=== PATIENT | male | born 1975 | race Hispanic/Latino ===

== ENCOUNTER 2018-09-09 00:50 | Observation (INO) | payer BC ==
[2018-09-09 01:38] VITALS: BMI 29.2
[2018-09-09] MEDS ORDERED: Morphine 2 mg/ml ISec IVP STA (02:03)
[2018-09-09] MEDS ORDERED: Sodium Chloride 0.9% 1,000 ML IV STA ×2 (02:03→05:01)
[2018-09-09] MEDS ORDERED: Morphine 4 mg/ml ISec IVP STA ×2 (02:14→03:41)
--- NOTE | 2018-09-09 02:19 | ED PDOC ---
Arrival/HPI - General Chief Complaint: Back Pain Time Seen by Provider: 09/09/18 01:07 Historian: Patient - History of Present Illness Narrative History of Present Illness (Text): 09/09/18 02:16 43 year old male, with no significant past medical history, presents to the emergency department with right flank pain and nausea, since today. Patient states pain is sharp and constant. Patient informs that he has been feeling sick, as he has had sick contact with his child at home who has pneumonia. Patient states he does not have dysuria, but seems to not be urinating as much as normal. Patient denies any fevers, chills, headache, dizziness, shortness of breath, chest pain, cough, vomiting, diarrhea, neck pain, or any other complaints. Time/Duration: Prior to Arrival, 24 hours Symptom Onset: Gradual Symptom Course: Unchanged Quality: Stabbing Context: Home Past Medical History - Provider Review Nursing Documentation Reviewed: Yes - Cardiac Hx Cardiac Disorders: Yes Hx Hypertension: Yes - Psychiatric Hx Substance Use: No Family/Social History - Physician Review Nursing Documentation Reviewed: Yes Family/Social History: No Known Family HX Smoking Status: Current Some Days Smoker Hx Alcohol Use: No Hx Substance Use: No Allergies/Home Meds Allergies/Adverse Reactions: Allergies No Known Allergies Allergy (Verified 09/09/18 01:43) Review of Systems - Physician Review All systems were reviewed & negative as marked: Yes - Review of Systems Constitutional: absent: Fevers, Night Sweats Respiratory: absent: SOB, Cough Cardiovascular: absent: Chest Pain Gastrointestinal: Abdominal Pain (Right flank), Nausea. absent: Diarrhea, Vomiting Musculoskeletal: absent: Neck Pain Neurological: absent: Headache, Dizziness Physical Exam Vital Signs Reviewed: Yes Vital Signs Temp Pulse Resp BP Pulse Ox 09/09/18 01:37 98.7 F 60 18 152/80 H 96 Temperature: Afebrile Blood Pressure: Normal Pulse: Regular Respiratory Rate: Normal Appearance: Positive for: Well-Appearing, Non-Toxic, Comfortable Pain Distress: None Mental Status: Positive for: Alert and Oriented X 3 - Systems Exam Head: Present: Atraumatic, Normocephalic Pupils: Present: PERRL Extroacular Muscles: Present: EOMI Conjunctiva: Present: Normal Mouth: Present: Moist Mucous Membranes Neck: Present: Normal Range of Motion Respiratory/Chest: Present: Clear to Auscultation, Good Air Exchange. No: Respiratory Distress, Accessory Muscle Use Cardiovascular: Present: Regular Rate and Rhythm, Normal S1, S2. No: Murmurs Abdomen: No: Tenderness, Distention, Peritoneal Signs Back: Present: CVA Tenderness (Mild right CVA tenderness) Upper Extremity: Present: Normal Inspection. No: Cyanosis, Edema Lower Extremity: Present: Normal Inspection. No: Edema Neurological: Present: GCS=15, CN II-XII Intact, Speech Normal Skin: Present: Warm, Dry, Normal Color. No: Rashes Psychiatric: Present: Alert, Oriented x 3, Normal Insight, Normal Concentration Medical Decision Making ED Course and Treatment: 09/09/18 02:21 Impression: 43 year old male presents with right flank pain Plan: -- CT ABD& Pelvis -- CMP, Lipase -- CBC -- Morphine -- Zofran -- Urinalysis -- Reassess and disposition Prior Visits: Notes and results from previous visits were reviewed. Progress Notes: 09/09/18 03:41 CT SCAN OF THE ABDOMEN AND PELVIS WITHOUT ORAL OR IV CONTRAST. CLINICAL INDICATION: Right flank pain. TECHNIQUE: Axial and reformatted sagittal and coronal images of the abdomen pelvis obtained without IV contrast administration. COMPARISON: None. FINDINGS: The visualized lung bases are unremarkable. Normal unenhanced liver. Normal gallbladder and extrahepatic biliary system. Normal unenhanced spleen. Normal pancreas. Normal bilateral adrenal glands. Normal size of the right kidney. There is no right renal mass. There are no right renal calculi. 5.5 mm obstructing stone of the right ureter at L3. Mild right hydroureteronephrosis. Right perinephric fat stranding. Normal size of the left kidney. There is no left renal mass. There are no left renal calculi. There is no left hydronephrosis. Normal visualized left ureter. Normal visualized stomach. Normal small intestine. Normal colon. The appendix is visualized and appears normal. There is no demonstrated peritoneal fluid. Normal abdominal aorta. Normal inferior vena cava. Normal retroperitoneum. Normal urinary bladder. There is no pelvic mass lesion or lymphadenopathy. There is no pelvic fluid. Fat containing left inguinal hernia without incarceration. Fat containing umbilical hernia without incarceration Diffuse chronic Schmorl's node formation. IMPRESSION: Obstructing stone of the right ureter. 09/09/18 03:47 Spoke the medical diagnostic radiographer and Dr Crabtree who accept to the hospitalist service. - RAD Interpretation Radiology Orders: 09/09/18 02:02 ABD & PELVIS W/O PO OR IV CONT [CT] Stat - Medication Orders Current Medication Orders: Sodium Chloride (Sodium Chloride 0.9%) 1,000 mls @ 999 mls/hr IV .Q1H1M STA Stop: 09/09/18 03:03 Discontinued Medications Morphine Sulfate (Morphine) 4 mg IVP STAT STA Stop: 09/09/18 02:15 Ondansetron HCl (Zofran Inj) 4 mg IVP ONCE ONE Stop: 09/09/18 02:04 - Scribe Statement The provider has reviewed the documentation as recorded by the Hueibrichard Campbell Provider Scribe Attestation: All medical record entries made by the Scribe were at my direction and personally dictated by me. I have reviewed the chart and agree that the record accurately reflects my personal performance of the history, physical exam, medical decision making, and the department course for this patient. I have also personally directed, reviewed, and agree with the discharge instructions and disposition. Disposition/Present on Arrival - Present on Arrival Any Indicators Present on Arrival: No History of DVT/PE: No History of Uncontrolled Diabetes: No Urinary Catheter: No History of Decub. Ulcer: No History Surgical Site Infection Following: None - Disposition Have Diagnosis and Disposition been Completed?: Yes Diagnosis: Renal colic, Intractable pain Disposition: HOSPITALIZED Disposition Time: 04:06 Patient Plan: Observation Condition: STABLE Referrals: Cresencio Richard MD [Primary Care Provider] - Follow up with primary Forms: [employer] (Bangladeshi)
[2018-09-09 02:41] LABS: HEMOGLOBIN 14.3 g/dL (14.0-18.0); MEAN CELL VOLUME 90.3 fl (80.0-105.0); MEAN CORPUSCULAR HEMOGLOBIN 31.4 pg (25.0-35.0); MEAN CORPUSCULAR HGB CONC 34.8 g/dl (31.0-37.0); MEAN PLATELET VOLUME 10.6 fl (7.0-11.0); RBC 4.55 10^6/uL (3.5-6.1); RED CELL DISTRIBUTION WIDTH 12.5 % (11.5-14.5); WHITE BLOOD COUNT 12.9 10^3/uL (4.5-11.0)
[2018-09-09 02:50] LABS: ALB/GLOB RATIO 1.7 (1.1-1.8); ALBUMIN 4.7 g/dL (3.0-4.8); ALT/SGPT 42 U/L (7-56); AST/SGOT 37 U/L (17-59); BLOOD UREA NITROGEN 21 mg/dL (7-21); CALCIUM 9.3 mg/dL (8.4-10.5); GFR NON-AFRICAN AMERICAN > 60; LIPASE 62 U/L (23-300)
[2018-09-09 04:19] LABS: URINE BILIRUBIN NEGATIVE (NEGATIVE); URINE BLOOD LARGE (NEGATIVE); URINE GLUCOSE (UA) NEGATIVE (NEGATIVE); URINE LEUKOCYTE ESTERASE NEGATIVE Leu/uL (NEGATIVE); URINE PROTEIN NEGATIVE mg/dL (<30 mg/dL); URINE UROBILINOGEN 0.2 E.U./dL (<1 E.U./dL)
[2018-09-09 04:27] LABS: URINE APPEARANCE SLIGHT-CLOUDY (CLEAR); URINE COLOR YELLOW (YELLOW)
[2018-09-09 04:39] LABS: URINE EPITHELIAL CELLS 0 - 2 /hpf (0-5); URINE RBC 15 - 20 /hpf (0-2); URINE WBC 0 - 2 /hpf (0-6)
--- NOTE | 2018-09-09 04:55 | CP.PCM.HP ---
<Erik Taylor - Last Filed: 09/09/18 05:44> History of Present Illness - History of Present Illness History of Present Illness: Erik Taylor, PGY-1, Internal Medicine History and Physical for Dr. Crabtree 43 year old male with past medical history of hypertension presents with right flank pain and nausea since 20:00 on 09/08. Patient reported that his pain was dull and constant at an 8/10 until he was given morphine the emergency department. Pain does not radiate. Patient reports not being to handle drinking water this evening. Patient has noticed a decrease in urination lately. Patient also reported that he has had nasal congestion for the past 3-5 days. He says that he does not have any cough, shortness of breath, or sore throat. Patient denies fever, headache, chest pain, heart palpitations, shortness of breath, nausea, vomiting, constipation, diarrhea, dysuria. hematuria. 12-point ROS was unremarkable except for what was mentioned above. PMH: Hypertension PSH: denies FMHx: denies SHx: smoked 2 cigarettes recently. Used to smoke for 10 years, 10 years ago. unknown how much. Patient denies current alcohol and recreational drug use. Allergies: denies PMD: Dr. Dhaliwal [place] Rx: [facility]: [facility] [place] Present on Admission - Present on Admission Any Indicators Present on Admission: No Review of Systems - Constitutional Constitutional: absent: Anorexia, Chills, Fever - EENT Eyes: absent: Blurred Vision Ears: absent: Decreased Hearing Nose/Mouth/Throat: Nasal Congestion - Cardiovascular Cardiovascular: absent: Chest Pain, Dyspnea, Edema, Leg Edema - Respiratory Respiratory: absent: Cough, Dyspnea, Wheezing - Gastrointestinal Gastrointestinal: Abdominal Pain (rlq pain). absent: Constipation, Diarrhea - Genitourinary Genitourinary: Change in Urinary Stream. absent: Dysuria, Hematuria - Musculoskeletal Musculoskeletal: absent: Arthralgias - Neurological Neurological: absent: Numbness, Tingling, Vertigo Past Patient History - Past Social History Smoking Status: Current Some Days Smoker - CARDIAC Hx Cardiac Disorders: Yes Hx Hypertension: Yes - PSYCHIATRIC Hx Substance Use: No Meds Allergies/Adverse Reactions: Allergies Allergy/AdvReac Type Severity Reaction Status Date / Time No Known Allergies Allergy Verified 09/09/18 01:43 Physical Exam - Constitutional Appears: Well, Non-toxic, No Acute Distress - Head Exam Head Exam: ATRAUMATIC, NORMAL INSPECTION, NORMOCEPHALIC - Eye Exam Eye Exam: EOMI, PERRL - ENT Exam ENT Exam: Mucous Membranes Moist - Respiratory Exam Respiratory Exam: Clear to Auscultation Bilateral, NORMAL BREATHING PATTERN - Cardiovascular Exam Cardiovascular Exam: REGULAR RHYTHM, RRR - GI/Abdominal Exam GI & Abdominal Exam: Normal Bowel Sounds, Soft, Tenderness (rlq) - Extremities Exam Extremities exam: Positive for: full ROM - Back Exam Back exam: absent: CVA tenderness (L), CVA tenderness (R) - Neurological Exam Neurological exam: Alert, CN II-XII Intact, Oriented x3 - Psychiatric Exam Psychiatric exam: Normal Affect, Normal Mood - Skin Skin Exam: Dry, Intact, Normal Color Results - Vital Signs Recent Vital Signs: Last Vital Signs Temp 98.7 F 09/09/18 01:37 Pulse 60 09/09/18 01:37 Resp 18 09/09/18 01:37 BP 152/80 H 09/09/18 01:37 Pulse Ox 96 09/09/18 01:37 - Labs Result Diagrams: 09/09/18 02:21 09/09/18 02:21 Labs: Laboratory Results - last 24 hr 09/09/18 09/09/18 09/09/18 02:21 02:21 04:00 WBC 12.9 H RBC 4.55 Hgb 14.3 Hct 41.1 L MCV 90.3 MCH 31.4 MCHC 34.8 RDW 12.5 Plt Count 235 MPV 10.6 Sodium 136 Potassium 3.7 Chloride 99 Carbon Dioxide 28 Anion Gap 13 BUN 21 Creatinine 1.2 Est GFR ( Amer) > 60 Est GFR (Non-Af Amer) > 60 Random Glucose 122 H Calcium 9.3 Total Bilirubin 0.5 AST 37 ALT 42 Alkaline Phosphatase 79 Total Protein 7.4 Albumin 4.7 Globulin 2.7 Albumin/Globulin Ratio 1.7 Lipase 62 Urine Color Yellow Urine Appearance Slight-cloudy Urine pH 6.0 Ur Specific [place] >= 1.030 Urine Protein Negative Urine Glucose (UA) Negative Urine Ketones Negative Urine Blood Large H Urine Nitrate Negative Urine Bilirubin Negative Urine Urobilinogen 0.2 Ur Leukocyte Esterase Negative Urine RBC 15 - 20 H Urine WBC 0 - 2 Ur Epithelial Cells 0 - 2 Urine Bacteria None Assessment & Plan - Assessment and Plan (Free Text) Assessment: 43 year old male with past medical history of hypertension presents with right flank pain and nausea since 20:00 on 09/08. Patient reported that his pain was dull and constant at an 8/10 until he was given morphine the emergency department. Abdominal CT shows obstructing stone that is 5.5 mm in the right ureter at L3. There is mild right hydronephrosis. There is right perinephric stranding. Plan: Nephrolithiasis -CT abdomen and pelvis reveals 5.5 mm stone in the right renal pelvis. -Leukocytosis likely due to stress induced. -Urinanalysis and urine culture ordered. -Blood culture ordered. -1 L of NS in the ED. -NS at 125 cc/hr -Flomax 0.4 mg -Tylenol for mild pain, toradol for moderate pain, and morphine 2 mg Q4PRN for pain Hypertension -BP: 152/80 -Patient takes benicar at home. -Losartan 25 mg daily for patient until home medication can be reconciled in the morning by pharmacy. Common Cold -CXR ordered to rule out pneumonia. -No antibiotics indicated at this time. -Guaifenesin ordered as needed for symptom control. GI prophylaxis: protonix 40 mg dialy DVT prophylaxis: heparin 5000 U Q8 Patient plan discussed with Dr. Crabtree. - Date & Time Date: 09/09/18 Time: 04:58 <Allyson Crabtree - Last Filed: 09/09/18 07:27> Results - Vital Signs Recent Vital Signs: Last Vital Signs Temp 98.7 F 09/09/18 01:37 Pulse 61 09/09/18 06:20 Resp 18 09/09/18 06:20 BP 145/82 09/09/18 06:20 Pulse Ox 100 09/09/18 06:20 - Labs Result Diagrams: 09/09/18 02:21 09/09/18 02:21 Labs: Laboratory Results - last 24 hr 09/09/18 09/09/18 09/09/18 02:21 02:21 04:00 WBC 12.9 H RBC 4.55 Hgb 14.3 Hct 41.1 L MCV 90.3 MCH 31.4 MCHC 34.8 RDW 12.5 Plt Count 235 MPV 10.6 Sodium 136 Potassium 3.7 Chloride 99 Carbon Dioxide 28 Anion Gap 13 BUN 21 Creatinine 1.2 Est GFR ( Amer) > 60 Est GFR (Non-Af Amer) > 60 Random Glucose 122 H Calcium 9.3 Total Bilirubin 0.5 AST 37 ALT 42 Alkaline Phosphatase 79 Total Protein 7.4 Albumin 4.7 Globulin 2.7 Albumin/Globulin Ratio 1.7 Lipase 62 Urine Color Yellow Urine Appearance Slight-cloudy Urine pH 6.0 Ur Specific [place] >= 1.030 Urine Protein Negative Urine Glucose (UA) Negative Urine Ketones Negative Urine Blood Large H Urine Nitrate Negative Urine Bilirubin Negative Urine Urobilinogen 0.2 Ur Leukocyte Esterase Negative Urine RBC 15 - 20 H Urine WBC 0 - 2 Ur Epithelial Cells 0 - 2 Urine Bacteria None Attending/Attestation - Attestation I have personally seen and examined this patient.: Yes I have fully participated in the care of the patient.: Yes I have reviewed all pertinent clinical information: Yes Notes (Text): 09/09/18 07:24 Pt seen with the resident by the bedside Case discussed in detail Agree with documentation,assessment and plan of treatment.
[2018-09-09] MEDS ORDERED: Morphine 2 mg/ml ISec IVP PRN (05:00)
[2018-09-09] MEDS ORDERED: guaiFENesin 100 mg/5 ml Syrup UD PO PRN (05:14)
[2018-09-09 06:40] VITALS: O2SAT 100
[2018-09-09 08:41] VITALS: TEMP 97.7
[2018-09-09 09:13] VITALS: RESP 16
[2018-09-09] MEDS ORDERED: Influenza Vaccine 60 mcg/0.5 mL SYR (4YR UP) IM ONE (09:16)
[2018-09-09 09:27] VITALS: BP 127/78; PULSE 56
--- NOTE | 2018-09-09 09:55 | CT ---
Date of service: 09/09/2018 PROCEDURE: CT Abdomen and Pelvis without intravenous contrast HISTORY: right flank pain COMPARISON: None. TECHNIQUE: Technique. Contrast dose: Radiation dose: Total exam DLP = 1073.96 mGy-cm. This CT exam was performed using one or more of the following dose reduction techniques: Automated exposure control, adjustment of the mA and/or kV according to patient size, and/or use of iterative reconstruction technique. FINDINGS: LOWER THORAX: Unremarkable. LIVER: Unremarkable. No gross lesion or ductal dilatation. GALLBLADDER AND BILE DUCTS: Unremarkable. PANCREAS: Unremarkable. No gross lesion or ductal dilatation. SPLEEN: Unremarkable. ADRENALS: Unremarkable. No mass. KIDNEYS AND URETERS: There is a 5 mm stone in the right proximal ureter with hydronephrosis and perinephric stranding. VASCULATURE: Unremarkable. No aortic aneurysm. No aortic atherosclerotic calcification or mural plaque present. BOWEL: Unremarkable. No obstruction. No gross mural thickening. APPENDIX: Unremarkable. Normal appendix. PERITONEUM: Unremarkable. No free fluid. No free air. LYMPH NODES: Unremarkable. No enlarged lymph nodes. BLADDER: Unremarkable. REPRODUCTIVE: Unremarkable. BONES: No acute fracture. OTHER FINDINGS: The report concurs with the preliminary [facility] report IMPRESSION: There is a 5 mm stone in the right proximal ureter with hydronephrosis and perinephric stranding.
--- NOTE | 2018-09-09 12:14 | RAD ---
Date of service: 09/09/2018 HISTORY: Pneumonia suspected. COMPARISON: No prior. FINDINGS: LUNGS: No active pulmonary disease. PLEURA: No significant pleural effusion identified, no pneumothorax apparent. CARDIOVASCULAR: No atherosclerotic calcification present Normal. OSSEOUS STRUCTURES: No significant abnormalities. VISUALIZED UPPER ABDOMEN: Normal. OTHER FINDINGS: None. IMPRESSION: No active disease.
--- NOTE | 2018-09-09 13:20 | PCM.URO ---
Urology Progress Note - Subjective Abdominal Pain: Yes (gu plans:out pt management) - Objective Lab Results Last 24 Hours: Laboratory Results - last 24 hr 09/09/18 09/09/18 09/09/18 02:21 02:21 04:00 WBC 12.9 H RBC 4.55 Hgb 14.3 Hct 41.1 L MCV 90.3 MCH 31.4 MCHC 34.8 RDW 12.5 Plt Count 235 MPV 10.6 Sodium 136 Potassium 3.7 Chloride 99 Carbon Dioxide 28 Anion Gap 13 BUN 21 Creatinine 1.2 Est GFR ( Amer) > 60 Est GFR (Non-Af Amer) > 60 Random Glucose 122 H Calcium 9.3 Total Bilirubin 0.5 AST 37 ALT 42 Alkaline Phosphatase 79 Total Protein 7.4 Albumin 4.7 Globulin 2.7 Albumin/Globulin Ratio 1.7 Lipase 62 Urine Color Yellow Urine Appearance Slight-cloudy Urine pH 6.0 Ur Specific [place] >= 1.030 Urine Protein Negative Urine Glucose (UA) Negative Urine Ketones Negative Urine Blood Large H Urine Nitrate Negative Urine Bilirubin Negative Urine Urobilinogen 0.2 Ur Leukocyte Esterase Negative Urine RBC 15 - 20 H Urine WBC 0 - 2 Ur Epithelial Cells 0 - 2 Urine Bacteria None Intake & Output: Intake & Output 09/08/18 09/09/18 09/09/18 18:59 06:59 18:59 Weight 222 lb Other: Voiding Method Toilet Vital Signs: Vital Signs - 24 hr 09/09/18 09/09/18 09/09/18 01:37 05:00 05:09 Temperature 98.7 F 97.7 F Pulse Rate 60 63 56 L Respiratory 18 18 18 Rate Blood Pressure 152/80 H 146/74 127/78 O2 Sat by Pulse 96 100 95 Oximetry 09/09/18 09/09/18 09/09/18 06:20 08:39 09:20 Temperature Pulse Rate 61 56 L Respiratory 18 16 Rate Blood Pressure 145/82 127/78 O2 Sat by Pulse 100 Oximetry
--- NOTE | 2018-09-09 14:17 | CP.PCM.DIS ---
<Cedrick Jimenez - Last Filed: 09/09/18 16:58> Provider - Provider Date of Admission: 09/09/18 04:04 Attending physician: Stephen Perales MD Primary care physician: Cresencio Richard MD Consults: 09/09/18 05:01 Physician Consult Routine Comment: Consulting Provider: Amilcar Pryor Consulting Physician: Amilcar Pryor Reason for Consult: 5.5 mm right ureter stone Time Spent in preparation of Discharge (in minutes): 45 Diagnosis - Discharge Diagnosis (1) Nephrolithiasis Status: Acute Hospital Course - Lab Results Lab Results: Most Recent Lab Values WBC 12.9 10^3/uL (4.5-11.0) H 09/09/18 02:21 RBC 4.55 10^6/uL (3.5-6.1) 09/09/18 02:21 Hgb 14.3 g/dL (14.0-18.0) 09/09/18 02:21 Hct 41.1 % (42.0-52.0) L 09/09/18 02:21 MCV 90.3 fl (80.0-105.0) 09/09/18 02:21 MCH 31.4 pg (25.0-35.0) 09/09/18 02:21 MCHC 34.8 g/dl (31.0-37.0) 09/09/18 02:21 RDW 12.5 % (11.5-14.5) 09/09/18 02:21 Plt Count 235 10^3/uL (120.0-450.0) 09/09/18 02:21 MPV 10.6 fl (7.0-11.0) 09/09/18 02:21 Sodium 136 mmol/L (132-148) 09/09/18 02:21 Potassium 3.7 mmol/L (3.6-5.0) 09/09/18 02:21 Chloride 99 mmol/L (98-107) 09/09/18 02:21 Carbon Dioxide 28 mmol/L (21-33) 09/09/18 02:21 Anion Gap 13 (10-20) 09/09/18 02:21 BUN 21 mg/dL (7-21) 09/09/18 02:21 Creatinine 1.2 mg/dl (0.8-1.5) 09/09/18 02:21 Est GFR ( Amer) > 60 09/09/18 02:21 Est GFR (Non-Af Amer) > 60 09/09/18 02:21 Random Glucose 122 mg/dL (70-110) H 09/09/18 02:21 Calcium 9.3 mg/dL (8.4-10.5) 09/09/18 02:21 Total Bilirubin 0.5 mg/dL (0.2-1.3) 09/09/18 02:21 AST 37 U/L (17-59) 09/09/18 02:21 ALT 42 U/L (7-56) 09/09/18 02:21 Alkaline Phosphatase 79 U/L (38-126) 09/09/18 02:21 Total Protein 7.4 g/dL (5.8-8.3) 09/09/18 02:21 Albumin 4.7 g/dL (3.0-4.8) 09/09/18 02:21 Globulin 2.7 gm/dL 09/09/18 02:21 Albumin/Globulin Ratio 1.7 (1.1-1.8) 09/09/18 02:21 Lipase 62 U/L (23-300) 09/09/18 02:21 Urine Color Yellow (YELLOW) 09/09/18 04:00 Urine Appearance Slight-cloudy (CLEAR) 09/09/18 04:00 Urine pH 6.0 (4.7-8.0) 09/09/18 04:00 Ur Specific [place] >= 1.030 (1.005-1.035) 09/09/18 04:00 Urine Protein Negative mg/dL (<30 mg/dL) 09/09/18 04:00 Urine Glucose (UA) Negative mg/dL (NEGATIVE) 09/09/18 04:00 Urine Ketones Negative mg/dL (NEGATIVE) 09/09/18 04:00 Urine Blood Large (NEGATIVE) H 09/09/18 04:00 Urine Nitrate Negative (NEGATIVE) 09/09/18 04:00 Urine Bilirubin Negative (NEGATIVE) 09/09/18 04:00 Urine Urobilinogen 0.2 E.U./dL (<1 E.U./dL) 09/09/18 04:00 Ur Leukocyte Esterase Negative [place]/uL (NEGATIVE) 09/09/18 04:00 Urine RBC 15 - 20 /hpf (0-2) H 09/09/18 04:00 Urine WBC 0 - 2 /hpf (0-6) 09/09/18 04:00 Ur Epithelial Cells 0 - 2 /hpf (0-5) 09/09/18 04:00 Urine Bacteria None /hpf (NONE) 09/09/18 04:00 - Hospital Course Hospital Course: HPI at time of admission: "43 year old male with past medical history of hypertension presents with right flank pain and nausea since 20:00 on 09/08. Patient reported that his pain was dull and constant at an 8/10 until he was given morphine the emergency department. Pain does not radiate. Patient reports not being to handle drinking water this evening. Patient has noticed a decrease in urination lately. Patient also reported that he has had nasal congestion for the past 3-5 days. He says that he does not have any cough, shortness of breath, or sore throat. Patient denies fever, headache, chest pain, heart palpitations, shortness of breath, nausea, vomiting, constipation, diarrhea, dysuria. hematuria. 12-point ROS was unremarkable except for what was mentioned above." Hospital Course: Pertinent imaging: Abdominal CT shows obstructing stone that is 5.5 mm in the right ureter at L3. There is mild right hydronephrosis. There is right perinephric stranding. Pt was admitted for nephrolithiasis. Urology (Dr. Amilcar Pryor) was consulted for further management. Pt was managed medically with pain control, IVF. Was able to tolerate PO diet without nausea/vomiting. Pt decided to leave against medical advice on 09/09/18. Instructed about risks of leaving against medical advice including worsening of symptoms, further obstruction, infection, possible . AMA forms signed at bedside with RN as witness. Discharge Exam - Head Exam Head Exam: ATRAUMATIC, NORMAL INSPECTION, NORMOCEPHALIC Additional comments: Unable to assess due to pt leaving against medical advice. Discharge Plan - Follow Up Plan Condition: STABLE Disposition: HOME/ ROUTINE Referrals: Cresencio Richard MD [Primary Care Provider] - <Stephen Perales - Last Filed: 09/12/18 00:33> Provider - Provider Date of Admission: 09/09/18 04:04 Attending physician: Stephen Perales MD Primary care physician: Cresencio Richard MD Consults: 09/09/18 05:01 Physician Consult Routine Comment: Consulting Provider: Amilcar Pryor Consulting Physician: Amilcar Pryor Reason for Consult: 5.5 mm right ureter stone Hospital Course - Lab Results Lab Results: Micro Results 09/09/18 06:10 Blood Blood Culture - Preliminary NO GROWTH AFTER 48 HOURS 09/09/18 05:50 Blood Blood Culture - Preliminary NO GROWTH AFTER 48 HOURS 09/09/18 04:50 Urine Random Urine Culture - Final No Growth (<1,000 CFU/ML) Most Recent Lab Values WBC 12.9 10^3/uL (4.5-11.0) H 09/09/18 02:21 RBC 4.55 10^6/uL (3.5-6.1) 09/09/18 02:21 Hgb 14.3 g/dL (14.0-18.0) 09/09/18 02:21 Hct 41.1 % (42.0-52.0) L 09/09/18 02:21 MCV 90.3 fl (80.0-105.0) 09/09/18 02:21 MCH 31.4 pg (25.0-35.0) 09/09/18 02:21 MCHC 34.8 g/dl (31.0-37.0) 09/09/18 02:21 RDW 12.5 % (11.5-14.5) 09/09/18 02:21 Plt Count 235 10^3/uL (120.0-450.0) 09/09/18 02:21 MPV 10.6 fl (7.0-11.0) 09/09/18 02:21 Sodium 136 mmol/L (132-148) 09/09/18 02:21 Potassium 3.7 mmol/L (3.6-5.0) 09/09/18 02:21 Chloride 99 mmol/L (98-107) 09/09/18 02:21 Carbon Dioxide 28 mmol/L (21-33) 09/09/18 02:21 Anion Gap 13 (10-20) 09/09/18 02:21 BUN 21 mg/dL (7-21) 09/09/18 02:21 Creatinine 1.2 mg/dl (0.8-1.5) 09/09/18 02:21 Est GFR ( Amer) > 60 09/09/18 02:21 Est GFR (Non-Af Amer) > 60 09/09/18 02:21 Random Glucose 122 mg/dL (70-110) H 09/09/18 02:21 Calcium 9.3 mg/dL (8.4-10.5) 09/09/18 02:21 Total Bilirubin 0.5 mg/dL (0.2-1.3) 09/09/18 02:21 AST 37 U/L (17-59) 09/09/18 02:21 ALT 42 U/L (7-56) 09/09/18 02:21 Alkaline Phosphatase 79 U/L (38-126) 09/09/18 02:21 Total Protein 7.4 g/dL (5.8-8.3) 09/09/18 02:21 Albumin 4.7 g/dL (3.0-4.8) 09/09/18 02:21 Globulin 2.7 gm/dL 09/09/18 02:21 Albumin/Globulin Ratio 1.7 (1.1-1.8) 09/09/18 02:21 Lipase 62 U/L (23-300) 09/09/18 02:21 Urine Color Yellow (YELLOW) 09/09/18 04:00 Urine Appearance Slight-cloudy (CLEAR) 09/09/18 04:00 Urine pH 6.0 (4.7-8.0) 09/09/18 04:00 Ur Specific [place] >= 1.030 (1.005-1.035) 09/09/18 04:00 Urine Protein Negative mg/dL (<30 mg/dL) 09/09/18 04:00 Urine Glucose (UA) Negative mg/dL (NEGATIVE) 09/09/18 04:00 Urine Ketones Negative mg/dL (NEGATIVE) 09/09/18 04:00 Urine Blood Large (NEGATIVE) H 09/09/18 04:00 Urine Nitrate Negative (NEGATIVE) 09/09/18 04:00 Urine Bilirubin Negative (NEGATIVE) 09/09/18 04:00 Urine Urobilinogen 0.2 E.U./dL (<1 E.U./dL) 09/09/18 04:00 Ur Leukocyte Esterase Negative [place]/uL (NEGATIVE) 09/09/18 04:00 Urine RBC 15 - 20 /hpf (0-2) H 09/09/18 04:00 Urine WBC 0 - 2 /hpf (0-6) 09/09/18 04:00 Ur Epithelial Cells 0 - 2 /hpf (0-5) 09/09/18 04:00 Urine Bacteria None /hpf (NONE) 09/09/18 04:00 Attending/Attestation - Attestation I have personally seen and examined this patient.: Yes I have fully participated in the care of the patient.: Yes I have reviewed all pertinent clinical information, including history, physical exam and plan: Yes Notes (Text): Pt signed out AMA
[2018-09-10] MEDS ORDERED: Pantoprazole 40 mg EC Tab PO SCH (07:30)
== END 2018-09-09 14:19 | disposition home or self-care (01) ==
LOC: ED 00:50 → ERH 04:04 → 5RSO 07:16
PROVIDERS: ADMIT Hospitalist; ATTEND Hospitalist
DX: N13.2 Hydronephrosis with renal and ureteral calculous obstruction (principal); I10 Essential (primary) hypertension; F17.200 Nicotine dependence, unspecified, uncomplicated
CPT/HCPCS: 71045; 74176; 80053; 81001; 83690; 85027; 87040; 87086; 96372; 96374; 96375; 96376; 99284; C9113; G0378; J1644; J1885; J2270; J2405; J7030